=== PATIENT | male | born 1965 | race Caucasian/White ===

== ENCOUNTER 2019-02-08 17:29 | Emergency (ER) | payer OTHER ==
[2019-02-08 17:33] VITALS: BMI 30.4
[2019-02-08 18:10] VITALS: BP 126/91; PULSE 59; TEMP 98.1
--- NOTE | 2019-02-08 18:18 | PDOC ---
Documentation entered by Sharda Ann SCRIBE, acting as scribe for Dean Epps MD. Dean Epps MD: This documentation has been prepared by the christaeSeth Adrianna, SCRIBE, under my direction and personally reviewed by me in its entirety. I confirm that the documentation accurately reflects all work, treatment, procedures, and medical decision making performed by me. History of Present Illness - General Chief Complaint: Pain, Acute Stated Complaint: RIGHT LEG SWELLING/PAIN - History of Present Illness Initial Comments: The patient is a 53 year old male, with a significant PMH of MVP, who presents to the ED for evaluation of lower extremity pain for 3 days. Patient complains of right lower extremity bumps in his veins that are warm to touch and painful to palpation. He notes he had a DVT of the RLE in the past, where he was admitted to the hospital for 3 days and placed on ACs. Denies any pain to the LLE. Patient notes he varicose vein treatments in the past, but they have returned to both LEs (R>L). Allergies: NKA, NKDA Surgical History: Umbilical and inguinal hernia repairs, right knee orthopedic surgery Social History: Denies EtOH, tobacco, or illicit drug use PCP: Dr. Villarreal Past History - Past Medical History Allergies/Adverse Reactions: Allergies Allergy/AdvReac Type Severity Reaction Status Date / Time No Known Allergies Allergy Verified 02/08/19 17:30 Home Medications: Ambulatory Orders NK [No Known Home Medication] 02/08/19 Cardiac Disorders: Yes (MVP) COPD: No - Surgical History Abdominal Surgery: Yes (Umbilical and Inguinal hernias repair) Orthopedic Surgery: Yes (right knee surgeries) - Psycho Social/Smoking Cessation Hx Smoking History: Never smoked Hx Alcohol Use: No Drug/Substance Use Hx: No Review of Systems - Review of Systems Comments:: GENERAL/CONSTITUTIONAL: No fever or chills. No weakness. HEAD, EYES, EARS, NOSE AND THROAT: No change in vision. No ear pain or discharge. No sore throat. CARDIOVASCULAR: No chest pain or shortness of breath. RESPIRATORY: No cough, wheezing, or hemoptysis. GASTROINTESTINAL: No nausea, vomiting, diarrhea or constipation. GENITOURINARY: No dysuria, frequency, or change in urination. MUSCULOSKELETAL: +RLE vein bumps that are warm and tender to touch. No neck or back pain. SKIN: No rash NEUROLOGIC: No headache, vertigo, loss of consciousness, or change in strength/ sensation. ENDOCRINE: No increased thirst. No abnormal weight change. HEMATOLOGIC/LYMPHATIC: No anemia, easy bleeding, or history of blood clots. ALLERGIC/IMMUNOLOGIC: No hives or skin allergy. 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 Today has redness and swelling very localized in the medial thigh. No calf swelling or tenderness. Venous Doppler today is negative for DVT. Symptomatic treatment and referral to Dr. Lyle. Fully ambulatory and in no severe pain or other distress at discharge to follow-up as directed. Discharge - Discharge Information Problems reviewed: Yes Clinical Impression/Diagnosis: Superficial thrombophlebitis of right leg Condition: Stable Disposition: HOME - Admission No - Follow up/Referral Referrals: Isaías Villarreal MD [Primary Care Provider] - 2 Days Joaquim Lyle MD [Staff Physician] - - Patient Discharge Instructions Patient Printed Discharge Instructions: DI for Superficial Thrombophlebitis - Post Discharge Activity
== END 2019-02-08 18:26 | disposition home or self-care (01) ==
LOC: FER 17:29
DX: I80.01 Phlebitis and thrombophlebitis of superficial vessels of right lower extremity (principal); Z86.718 Personal history of other venous thrombosis and embolism
CPT/HCPCS: 93971-TC; 99282-25